=== PATIENT | female | born 1970 | race American Indian/Alaskan Native ===

== ENCOUNTER 2021-02-27 19:41 | Emergency (ER) | payer OTHER, SELFPAY ==
[2021-02-27 21:48] VITALS: BP 148/94
--- NOTE | 2021-02-27 22:59 | XRay Report ---
CHEST 2 VIEWS INDICATION / CLINICAL INFORMATION: sob,fever. FINDINGS: SUPPORT DEVICES: None. HEART / MEDIASTINUM: No significant abnormality. LUNGS / PLEURA: Slight increased parenchymal density within the right lower lung may represent pneumo roldan. The left lung is grossly clear. Signer Name: Hiren Truong MD Signed: 02/27/2021 10:54 PM Workstation Name: [id number]
--- NOTE | 2021-02-27 23:30 | Emergency Department Report ---
- General Chief Complaint: Fever Stated Complaint: FEELING BAD 2WKS Source: patient Mode of arrival: Ambulatory Limitations: No Limitations - History of Present Illness Initial Comments: 50-year-old -[place] female presents to the emergency room for 2-week history of cough nasal congestion headache that is sharp. She is not vaccinated. States she has had a fever but does not have a thermometer. She denies any shortness of breath but does admit to loss of taste or smell. She denies any diarrhea no abdominal pain. She has a history of hypertension states she is on 2 medications but does not know the name. Patient is from out of town and is here till May. Patient currently does not work. MD Complaint: cough, nasal congestion Onset/Timin -: week(s) Severity: moderate Quality: aching Consistency: constant Improves With: nothing Context: recent travel Associated Symptoms: fever, chills, headache, cough, other (Loss of taste and smell). denies: chest pain, shortness of breath, abdominal pain, nausea, vomiting, diarrhea Treatments Prior to Arrival: none - Related Data Previous Rx's Medication Instructions Recorded Last Taken Type Azithromycin [Zithromax Z-RENETTA] 0 mg PO DAILY #6 tab 02/27/21 Unknown Rx predniSONE [Deltasone] 20 mg PO QDAY #5 tab 02/27/21 Unknown Rx Allergies Allergy/AdvReac Type Severity Reaction Status Date / Time No Known Allergies Allergy Unverified 02/27/21 21:45 ED Review of Systems ROS: Stated complaint: FEELING BAD 2WKS Other details as noted in HPI Comment: All other systems reviewed and negative ED Past Medical Hx - Past Medical History Previous Medical History?: Yes Hx Hypertension: Yes - Surgical History Past Surgical History?: Yes Additional Surgical History: Hysterectomy - Medications Home Medications: Home Medications Medication Instructions Recorded Confirmed Last Taken Type Azithromycin [Zithromax Z-RENETTA] 0 mg PO DAILY #6 tab 02/27/21 Unknown Rx predniSONE [Deltasone] 20 mg PO QDAY #5 tab 02/27/21 Unknown Rx ED Physical Exam - General Limitations: No Limitations General appearance: alert - Head Head exam: Present: atraumatic, normocephalic - ENT ENT exam: Present: normal exam, normal external ear exam - Neck Neck exam: Present: normal inspection, full ROM - Respiratory Respiratory exam: Present: normal lung sounds bilaterally, other (coughing) - Cardiovascular Cardiovascular Exam: Present: regular rate - GI/Abdominal GI/Abdominal exam: Present: soft. Absent: distended - Extremities Exam Extremities exam: Present: normal inspection - Back Exam Back exam: Present: normal inspection, full ROM - Neurological Exam Neurological exam: Present: alert, oriented X3, normal gait - Psychiatric Psychiatric exam: Present: normal affect, normal mood - Skin Skin exam: Present: warm, dry, intact, normal color. Absent: rash ED Course Vital Signs 02/27/21 21:46 Temperature 98.3 F Pulse Rate 87 Respiratory 16 Rate Blood Pressure 148/94 O2 Sat by Pulse 94 Oximetry ED Medical Decision Making - Radiology Data Radiology results: report reviewed Study Comments [facility] [address] [place] [address] XRay Report Signed Patient: JOSH BURNS MR#: [id number] 3 : 1970 Acct:[id number] Age/Sex: 50 / F ADM Date: 02/27/21 Loc: ED Attending Dr: Ordering Physician: LISA GOSS Date of Service: 02/27/21 Procedure(s): XR chest routine 2V Accession Number(s): [id number] cc: LISA GOSS Fluoro Time In Minutes: CHEST 2 VIEWS INDICATION / CLINICAL INFORMATION: sob,fever. FINDINGS: SUPPORT DEVICES: None. HEART / MEDIASTINUM: No significant abnormality. LUNGS / PLEURA: Slight increased parenchymal density within the right lower lung may represent pneumonia. The left lung is grossly clear. Signer Name: Hiren Truong MD Signed: 02/27/2021 10:54 PM Workstation Name: [id number] Transcribed By: BC Dictated By: Hiren Truong MD Electronically Authenticated By: Hiren Truong MD Signed Date/Time: 02/27/212253 DD/ 53 TD/TT: - Medical Decision Making 50-year-old -[place] female presents to the emergency room for 2-week history of cough nasal congestion headache that is sharp. She is not vaccinated. States she has had a fever but does not have a thermometer. She denies any shortness of breath but does admit to loss of taste or smell. She denies any diarrhea no abdominal pain. She has a history of hypertension states she is on 2 medications but does not know the name. Patient is from out of town and is here till May. Patient currently does not work. Chest x-ray shows developing pneumonia to the left lower lung. Patient is afebrile with stable vitals. We will discharge her on azithromycin and prednisone and a referral to follow-up outpatient leg. Critical care attestation.: If time is entered above; I have spent that time in minutes in the direct care of this critically ill patient, excluding procedure time. ED Disposition Clinical Impression: Suspected 2019 novel coronavirus infection, Pneumonia Disposition: HOME / SELF CARE / HOMELESS Is pt being admited?: No Does the pt Need Aspirin: No Condition: Stable Instructions: Bacterial Pneumonia (ED), Prevent the Spread of COVID-19 if You Are Sick - CDC, COVID-19: How to Protect Yourself and Others - CDC, COVID-19 Frequently Asked Questions Additional Instructions: Your symptoms appear most consistent with a nonspecific viral syndrome. However, given this current pandemic, COVID-19 is in the differential of possibilities. I do recommend outpatient Covid 19 testing. In the meantime, isolate/quarantine yourself and stay away from anyone who is elderly, immunocompromised or chronically ill. You can use ibuprofen every 6-8 hours and Tylenol every 4-8 hours, using the dosing on the back of the bottle, as needed for any fever or body aches. Return to the emergency department with any worsening of your symptoms, development of chest pain or shortness of breath, or with any acute distress. Recommend to get vaccinated for Covid Prescriptions: predniSONE [Deltasone] 20 mg PO QDAY #5 tab Azithromycin [Zithromax Z-RENETTA] 0 mg PO DAILY #6 tab Referrals: [facility] [Provider Group] - 3-5 Days Time of Disposition: 23:44
== END 2021-02-27 23:50 | disposition home or self-care (01) ==
LOC: ED 19:41
DX: J18.9 Pneumonia, unspecified organism (principal); I10 Essential (primary) hypertension; Z20.822 Contact with and (suspected) exposure to COVID-19; Z79.899 Other long term (current) drug therapy; Z90.710 Acquired absence of both cervix and uterus
CPT/HCPCS: 71046